=== PATIENT | female | born 1950 ===

== ENCOUNTER 2021-08-06 13:08 | Inpatient (IN) ==
[2021-08-06] MEDS ORDERED: Naloxone 0.4 MG/ML INJ IVP PRN (16:13)
[2021-08-06] MEDS ORDERED: Ondansetron 4 MG/2 ML VIAL IVP PRN (16:13)
[2021-08-06] MEDS ORDERED: Perflutren Lipid Microsphere 1.3 ML in 0.9 % Sodium Chloride 8.7 ML IVP PRN (16:15)
[2021-08-06] MEDS ORDERED: *HR* Heparin 5,000 UNIT/ML VIAL IVP ONE (16:17)
[2021-08-06] MEDS ORDERED: *HR* Heparin 5,000 UNIT/ML VIAL IVP PRN ×2 (16:17)
[2021-08-06] MEDS ORDERED: D5% in Water 1,000 ML IVC PRN (16:21)
[2021-08-06] MEDS ORDERED: *HR* Dextrose 50 % in Water (Syg) 50 ML SYRINGE IVP PRN (16:21)
[2021-08-06] MEDS ORDERED: Dextrose Gel 15 GM/37.5 ML TUBE PO PRN ×2 (16:21)
[2021-08-06] MEDS ORDERED: Heparin 25,000UNIT/250ML 1/2NS 25,000 UNIT/250 ML IV.SOLN IVC SCH (16:30)
[2021-08-06] MEDS ORDERED: Isovue-370 500 ML BOTTLE IVP ONE (16:33)
[2021-08-06 17:47] LABS: Basophils # 0.1 K/mcL (0.0-0.2); Basophils % 0.9 %; Eosinophils # 0.1 K/mcL (0.0-0.6); Eosinophils % 1.6 %; Hematocrit 37.3 % (35.3-44.9); Hematocrit 37.9 % (35.3-44.9); Hemoglobin 11.2 g/dL (11.5-15.4); Immature Granulocytes % 0.4 % (0-4); Lymphocytes # 1.7 K/mcL (0.6-4.6); Lymphocytes % 21.5 %; Mean Corpuscular Hemoglobin 25.7 pg (28.0-33.3); Mean Corpuscular Hemoglobin 26.6 pg (28.0-33.3); Mean Corpuscular Volume 88.6 fL (83.0-100.0); Mean Platelet Volume 11.2 fL (9.4-12.4); Mean Platelet Volume 11.4 fL (9.4-12.4); Monocytes # 0.8 K/mcL (0.0-1.3); Monocytes % 10.1 %; Neutrophils # 5.3 K/mcL (1.6-8.9); Platelet Count 246 K/mcL (140-400); Platelet Count 265 K/mcL (140-400); Red Blood Count 4.21 M/mcL (3.82-4.97); Red Blood Count 4.28 M/mcL (3.82-4.97); Red Cell Distribution Width 14.7 % (11.5-14.5); Segmented Neutrophils % 65.5 %; White Blood Count 8.1 K/mcL (4.3-11.1); White Blood Count 8.2 K/mcL (4.3-11.1)
[2021-08-06 17:52] LABS: Heparin anti-factor XA UFH 0.1 IU/mL (0.30-0.70)
[2021-08-06 17:53] LABS: INR 1.2; Prothrombin Time 13.5 Seconds (9.4-12.1)
[2021-08-06] MEDS: 0.9 % Sodium Chloride 1,000 ML IVC SCH (18:00)
[2021-08-06] MEDS: Insulin LISPRO 300 UNITS/3 ML VIAL SUBQ SCH ×2 (18:01→21:04)
[2021-08-06 18:07] LABS: BUN/Creatinine Ratio 22 (6-26); Blood Urea Nitrogen 19 mg/dL (8-23); Calcium 8.2 mg/dL (8.6-10.3); Carbon Dioxide 25 mEq/L (23-29); Chloride 100 mEq/L (98-107); Glucose 298 mg/dL (70-105); Magnesium 1.6 mg/dL (1.6-2.6); Osmolality,Calculated 291 (280-300); Phosphorous 2.3 mg/dL (2.7-4.5); Sodium 134 mEq/L (136-145); eGFR For African Americans > 60 (> 60); eGFR For Non-African Americans > 60 (> 60)
[2021-08-06] MEDS ORDERED: Acetaminophen 325 MG TABLET PO ONE (21:22)
[2021-08-07 00:32] LABS: Basophils # 0.1 K/mcL (0.0-0.2); Basophils % 0.6 %; Eosinophils # 0.1 K/mcL (0.0-0.6); Hematocrit 33.1 % (35.3-44.9); Immature Granulocytes % 0.3 % (0-4); Lymphocytes # 1.7 K/mcL (0.6-4.6); Lymphocytes % 19.6 %; Mean Corpuscular HGB Conc 30.2 g/dL (31.6-35.5); Mean Corpuscular Hemoglobin 26.1 pg (28.0-33.3); Mean Corpuscular Volume 86.4 fL (83.0-100.0); Mean Platelet Volume 10.6 fL (9.4-12.4); Neutrophils # 5.9 K/mcL (1.6-8.9); Platelet Count 236 K/mcL (140-400); Red Blood Count 3.83 M/mcL (3.82-4.97); Red Cell Distribution Width 14.7 % (11.5-14.5); Segmented Neutrophils % 67.5 %; White Blood Count 8.7 K/mcL (4.3-11.1)
[2021-08-07 00:50] LABS: BUN/Creatinine Ratio 21 (6-26); Blood Urea Nitrogen 18 mg/dL (8-23); Calcium 7.7 mg/dL (8.6-10.3); Carbon Dioxide 24 mEq/L (23-29); Chloride 103 mEq/L (98-107); Glucose 227 mg/dL (70-105); Magnesium 1.5 mg/dL (1.6-2.6); Osmolality,Calculated 287 (280-300); Potassium 3.8 mEq/L (3.5-5.1); Sodium 134 mEq/L (136-145); eGFR For African Americans > 60 (> 60); eGFR For Non-African Americans > 60 (> 60)
[2021-08-07 05:20] LABS: Troponin I 0.23 ng/mL (< 0.04)
[2021-08-07] MEDS: Aspirin 81 MG TAB.CHEW PO SCH (08:41)
[2021-08-07] MEDS: Insulin LISPRO 300 UNITS/3 ML VIAL SUBQ SCH ×4 (08:46→21:09)
[2021-08-07] MEDS: 0.9 % Sodium Chloride 1,000 ML IVC SCH ×2 (08:53→23:59)
[2021-08-07 09:30] LABS: Thyroid Stimulating Hormone 7.906 mcIU/mL (0.340-5.600)
[2021-08-07 10:50] LABS: Folate 8.4 ng/mL (3.0-16.0)
[2021-08-07] MEDS ORDERED: hydrOXYzine pamoate 25 MG CAPSULE PO PRN (17:12)
[2021-08-07] MEDS: traZODone 50 MG TABLET PO SCH ×2 (21:08→21:12)
[2021-08-07] MEDS ORDERED: Acetaminophen 325 MG TABLET PO ONE (21:14)
[2021-08-08 02:04] LABS: Basophils % 0.6 %; Eosinophils # 0.1 K/mcL (0.0-0.6); Eosinophils % 1.4 %; Hematocrit 31.8 % (35.3-44.9); Hemoglobin 9.6 g/dL (11.5-15.4); Immature Granulocytes % 0.2 % (0-4); Lymphocytes # 1.3 K/mcL (0.6-4.6); Lymphocytes % 19.8 %; Mean Corpuscular HGB Conc 30.2 g/dL (31.6-35.5); Mean Corpuscular Hemoglobin 26.6 pg (28.0-33.3); Mean Corpuscular Volume 88.1 fL (83.0-100.0); Mean Platelet Volume 10.9 fL (9.4-12.4); Monocytes # 0.8 K/mcL (0.0-1.3); Neutrophils # 4.4 K/mcL (1.6-8.9); Platelet Count 199 K/mcL (140-400); Red Blood Count 3.61 M/mcL (3.82-4.97); Red Cell Distribution Width 14.8 % (11.5-14.5); White Blood Count 6.6 K/mcL (4.3-11.1)
[2021-08-08 02:18] LABS: Blood Urea Nitrogen 22 mg/dL (8-23); Calcium 7.5 mg/dL (8.6-10.3); Carbon Dioxide 23 mEq/L (23-29); Chloride 106 mEq/L (98-107); Glucose 255 mg/dL (70-105); Magnesium 1.9 mg/dL (1.6-2.6); Osmolality,Calculated 292 (280-300); Phosphorous 2.6 mg/dL (2.7-4.5); Potassium 4.2 mEq/L (3.5-5.1); Sodium 135 mEq/L (136-145)
[2021-08-08 03:06] LABS: BUN/Creatinine Ratio 24 (6-26); eGFR For African Americans > 60 (> 60); eGFR For Non-African Americans 60 (> 60)
[2021-08-08] MEDS: Metoprolol XL (24 HR) Succ 25 MG TAB.ER.24H PO SCH (07:14)
[2021-08-08] MEDS: Aspirin 81 MG TAB.CHEW PO SCH (07:14)
[2021-08-08] MEDS: Insulin LISPRO 300 UNITS/3 ML VIAL SUBQ SCH ×4 (07:15→20:29)
[2021-08-08] MEDS: 0.9 % Sodium Chloride 1,000 ML IVC SCH (12:06)
[2021-08-08] MEDS: lisinopriL 5 MG TABLET PO SCH (12:57)
[2021-08-08] MEDS: traZODone 50 MG TABLET PO SCH (20:26)
[2021-08-09 01:29] LABS: Basophils % 0.6 %; Eosinophils # 0.1 K/mcL (0.0-0.6); Eosinophils % 1.3 %; Hematocrit 34.9 % (35.3-44.9); Hemoglobin 10.3 g/dL (11.5-15.4); Immature Granulocytes % 0.2 % (0-4); Lymphocytes # 1.1 K/mcL (0.6-4.6); Lymphocytes % 17.9 %; Mean Corpuscular HGB Conc 29.5 g/dL (31.6-35.5); Mean Corpuscular Hemoglobin 26.5 pg (28.0-33.3); Mean Corpuscular Volume 89.7 fL (83.0-100.0); Mean Platelet Volume 11.4 fL (9.4-12.4); Monocytes # 0.7 K/mcL (0.0-1.3); Neutrophils # 4.3 K/mcL (1.6-8.9); Platelet Count 196 K/mcL (140-400); Red Blood Count 3.89 M/mcL (3.82-4.97); Red Cell Distribution Width 15.2 % (11.5-14.5); White Blood Count 6.2 K/mcL (4.3-11.1)
[2021-08-09 01:47] LABS: Albumin 2.9 g/dL (3.5-5.7); BUN/Creatinine Ratio 26 (6-26); Blood Urea Nitrogen 27 mg/dL (8-23); Calcium 7.7 mg/dL (8.6-10.3); Carbon Dioxide 23 mEq/L (23-29); Chloride 107 mEq/L (98-107); Glucose 231 mg/dL (70-105); Magnesium 1.9 mg/dL (1.6-2.6); Osmolality,Calculated 292 (280-300); Phosphorous 3.3 mg/dL (2.7-4.5); Potassium 4.4 mEq/L (3.5-5.1); Sodium 135 mEq/L (136-145); eGFR For African Americans > 60 (> 60); eGFR For Non-African Americans 53 (> 60)
[2021-08-09] MEDS: Metoprolol XL (24 HR) Succ 25 MG TAB.ER.24H PO SCH (08:55)
[2021-08-09] MEDS: Aspirin 81 MG TAB.CHEW PO SCH (08:55)
[2021-08-09] MEDS: Insulin LISPRO 300 UNITS/3 ML VIAL SUBQ SCH ×4 (09:00→21:00)
[2021-08-09] MEDS ORDERED: lisinopriL 5 MG TABLET PO SCH ×2 (09:01→09:15)
[2021-08-09] MEDS: lisinopriL 5 MG TABLET PO SCH (10:05)
[2021-08-09] MEDS ORDERED: GuaiFENesin Liq 200 MG/10 ML UDC PO PRN (10:23)
[2021-08-09] MEDS ORDERED: 0.9 % Sodium Chloride 500 ML IVC ONE ×2 (10:26→14:45)
[2021-08-09] MEDS: Cefdinir 300 MG CAPSULE PO SCH ×2 (10:48→20:57)
[2021-08-09] MEDS: Azithromycin 250 MG TABLET PO SCH (10:48)
[2021-08-09] MEDS: Albumin 25% 25gram/100mL 25 GM/100 ML IV.SOLN IVC SCH ×4 (11:14→17:44)
[2021-08-09] MEDS: Acetaminophen 325 MG TABLET PO PRN (16:02)
[2021-08-09] MEDS ORDERED: Fluconazole 150 MG TABLET PO ONE (16:11)
[2021-08-09] MEDS: traZODone 50 MG TABLET PO SCH (20:57)
[2021-08-10 01:37] LABS: Basophils # 0.1 K/mcL (0.0-0.2); Basophils % 0.7 %; Eosinophils # 0.1 K/mcL (0.0-0.6); Eosinophils % 1.3 %; Hematocrit 32.4 % (35.3-44.9); Hemoglobin 9.4 g/dL (11.5-15.4); Immature Granulocytes % 0.6 % (0-4); Lymphocytes # 1.8 K/mcL (0.6-4.6); Lymphocytes % 25.5 %; Mean Corpuscular Hemoglobin 26.5 pg (28.0-33.3); Mean Corpuscular Volume 91.3 fL (83.0-100.0); Mean Platelet Volume 11.6 fL (9.4-12.4); Monocytes # 0.9 K/mcL (0.0-1.3); Monocytes % 13.2 %; Neutrophils # 4.1 K/mcL (1.6-8.9); Platelet Count 167 K/mcL (140-400); Red Blood Count 3.55 M/mcL (3.82-4.97); Red Cell Distribution Width 15.3 % (11.5-14.5); Segmented Neutrophils % 58.7 %; White Blood Count 7.1 K/mcL (4.3-11.1)
[2021-08-10 01:55] LABS: Calcium 8.1 mg/dL (8.6-10.3); Magnesium 1.9 mg/dL (1.6-2.6); Phosphorous 3.7 mg/dL (2.7-4.5); Potassium 4.7 mEq/L (3.5-5.1)
[2021-08-10] MEDS: Insulin LISPRO 300 UNITS/3 ML VIAL SUBQ SCH ×4 (08:21→20:21)
[2021-08-10] MEDS: Aspirin 81 MG TAB.CHEW PO SCH (08:22)
[2021-08-10] MEDS: Cefdinir 300 MG CAPSULE PO SCH (08:22)
[2021-08-10] MEDS: Azithromycin 250 MG TABLET PO SCH (08:22)
[2021-08-10] MEDS: Metoprolol XL (24 HR) Succ 25 MG TAB.ER.24H PO SCH (08:23)
[2021-08-10] MEDS: Albumin 25% 25gram/100mL 25 GM/100 ML IV.SOLN IVC SCH ×2 (10:14→10:15)
[2021-08-10] MEDS: Acetaminophen 325 MG TABLET PO PRN ×2 (10:52→20:24)
[2021-08-10 11:20] LABS: Adenovirus Not Detected (Not Detect); Bordetella Pertussis Not Detected (Not Detect); Chlamydophila pneumoniae Not Detected (Not Detect); Coronavirus 229E Not Detected (Not Detect); Coronavirus HKU1 Not Detected (Not Detect); Coronavirus NL63 Not Detected (Not Detect); Coronavirus OC43 Not Detected (Not Detect); Human Metapneumovirus Not Detected (Not Detect); Human Rhinovirus/Enterovirus Not Detected (Not Detect); Influenza A Subtype 2009 H1 Not Detected (Not Detect); Influenza B Not Detected (Not Detect); Mycoplasma pneumoniae Not Detected (Not Detect); Parainfluenza Virus 1 Not Detected (Not Detect); Parainfluenza Virus 2 Not Detected (Not Detect); Parainfluenza Virus 3 Not Detected (Not Detect); Parainfluenza Virus 4 Not Detected (Not Detect); Respiratory Syncytial Virus Not Detected (Not Detect); SARS-CoV-2 Not Detected (Not Detect)
[2021-08-10] MEDS: cefTRIAXone 1,000 MG in Water for inj. (sterile) 10 ML IVP SCH (12:43)
[2021-08-10 16:00] LABS: Total Protein,Pleural Fluid 2.2 g/dL
[2021-08-10 16:42] LABS: RBC,Pleural Fluid < 2000 RBC/mcL
[2021-08-10 16:53] LABS: Appearance of Pleural Fl Clear (Clear)
[2021-08-10 17:00] LABS: Basophils,Pleural Fluid 0 %; Eosinophils,Pleural Fluid 0 %; Monocytes,Pleural Fluid 0 %
[2021-08-10] MEDS: traZODone 50 MG TABLET PO SCH (20:20)
[2021-08-11 01:01] LABS: Basophils # 0.1 K/mcL (0.0-0.2); Basophils % 0.8 %; Eosinophils # 0.1 K/mcL (0.0-0.6); Eosinophils % 0.9 %; Hemoglobin 9.7 g/dL (11.5-15.4); Immature Granulocytes % 0.4 % (0-4); Lymphocytes # 1.3 K/mcL (0.6-4.6); Lymphocytes % 15.1 %; Mean Corpuscular HGB Conc 29.4 g/dL (31.6-35.5); Mean Corpuscular Hemoglobin 26.4 pg (28.0-33.3); Mean Corpuscular Volume 89.9 fL (83.0-100.0); Mean Platelet Volume 11.5 fL (9.4-12.4); Monocytes # 0.8 K/mcL (0.0-1.3); Monocytes % 9.1 %; Neutrophils # 6.3 K/mcL (1.6-8.9); Platelet Count 179 K/mcL (140-400); Red Blood Count 3.67 M/mcL (3.82-4.97); Red Cell Distribution Width 15.5 % (11.5-14.5); Segmented Neutrophils % 73.7 %; White Blood Count 8.5 K/mcL (4.3-11.1)
[2021-08-11 01:24] LABS: Calcium 8.2 mg/dL (8.6-10.3); Magnesium 1.8 mg/dL (1.6-2.6); Phosphorous 3.8 mg/dL (2.7-4.5); Potassium 4.9 mEq/L (3.5-5.1)
[2021-08-11] MEDS: Metoprolol XL (24 HR) Succ 25 MG TAB.ER.24H PO SCH (08:10)
[2021-08-11] MEDS: Aspirin 81 MG TAB.CHEW PO SCH (08:11)
[2021-08-11] MEDS: cefTRIAXone 1,000 MG in Water for inj. (sterile) 10 ML IVP SCH (08:12)
[2021-08-11] MEDS: Insulin LISPRO 300 UNITS/3 ML VIAL SUBQ SCH ×4 (08:13→21:01)
[2021-08-11] MEDS: Acetaminophen 325 MG TABLET PO PRN ×2 (08:19→21:02)
[2021-08-11] MEDS ORDERED: Azithromycin 500 MG in 0.9 % Sodium Chloride 250 ML IVPB SCH (09:00)
[2021-08-11] MEDS ORDERED: traZODone 50 MG TABLET PO SCH (21:00)
[2021-08-12 01:50] LABS: BUN/Creatinine Ratio 29 (6-26); Blood Urea Nitrogen 29 mg/dL (8-23); Calcium 8.1 mg/dL (8.6-10.3); Carbon Dioxide 24 mEq/L (23-29); Chloride 107 mEq/L (98-107); Glucose 219 mg/dL (70-105); Magnesium 1.8 mg/dL (1.6-2.6); Osmolality,Calculated 295 (280-300); Phosphorous 3.3 mg/dL (2.7-4.5); Potassium 4.2 mEq/L (3.5-5.1); Sodium 136 mEq/L (136-145); eGFR For African Americans > 60 (> 60); eGFR For Non-African Americans 54 (> 60)
[2021-08-12] MEDS: Insulin LISPRO 300 UNITS/3 ML VIAL SUBQ SCH ×3 (08:26→16:40)
[2021-08-12] MEDS: Metoprolol XL (24 HR) Succ 25 MG TAB.ER.24H PO SCH (08:31)
[2021-08-12] MEDS: Acetaminophen 325 MG TABLET PO PRN ×2 (08:31→14:36)
[2021-08-12] MEDS: Aspirin 81 MG TAB.CHEW PO SCH (08:31)
[2021-08-12] MEDS: cefTRIAXone 1,000 MG in Water for inj. (sterile) 10 ML IVP SCH (08:32)
[2021-08-12 11:43] LABS: Adenovirus Not Detected (Not Detect); Bordetella Pertussis Not Detected (Not Detect); Chlamydophila pneumoniae Not Detected (Not Detect); Coronavirus 229E Not Detected (Not Detect); Coronavirus HKU1 Not Detected (Not Detect); Coronavirus NL63 Not Detected (Not Detect); Coronavirus OC43 Not Detected (Not Detect); Human Metapneumovirus Not Detected (Not Detect); Human Rhinovirus/Enterovirus Not Detected (Not Detect); Influenza A Subtype 2009 H1 Not Detected (Not Detect); Influenza B Not Detected (Not Detect); Mycoplasma pneumoniae Not Detected (Not Detect); Parainfluenza Virus 1 Not Detected (Not Detect); Parainfluenza Virus 2 Not Detected (Not Detect); Parainfluenza Virus 3 Not Detected (Not Detect); Parainfluenza Virus 4 Not Detected (Not Detect); Respiratory Syncytial Virus Not Detected (Not Detect); SARS-CoV-2 Not Detected (Not Detect)
[2021-08-12 16:03] VITALS: BP 136/94; PULSE 76; TEMP 97.3; O2SAT 92
== END 2021-08-12 18:50 | disposition other institution (70) | DRG 280 ==
LOC: 2ANU → SUATTDRO 08-07 13:29
PROVIDERS: ADMIT Family Medicine; ATTEND Internal Medicine

== ENCOUNTER 2022-03-17 23:54 | Observation (INO) ==
[2022-03-18] MEDS ORDERED: Naloxone 0.4 MG/ML INJ IVP PRN (08:46)
[2022-03-18] MEDS ORDERED: Ondansetron ODT 4 MG TAB.RAPDIS SL PRN (08:46)
[2022-03-18] MEDS ORDERED: Perflutren Lipid Microsphere 1.3 ML in 0.9 % Sodium Chloride 8.7 ML IVP PRN (08:50)
[2022-03-18 09:42] LABS: Basophils % 0.7 %; Eosinophils # 0.2 K/mcL (0.0-0.6); Eosinophils % 4.1 %; Hematocrit 33.8 % (35.3-44.9); Hemoglobin 10.9 g/dL (11.5-15.4); Immature Granulocytes % 0.4 % (0-4); Lymphocytes # 1.4 K/mcL (0.6-4.6); Lymphocytes % 24.2 %; Mean Corpuscular HGB Conc 32.2 g/dL (31.6-35.5); Mean Corpuscular Hemoglobin 28.3 pg (28.0-33.3); Mean Corpuscular Volume 87.8 fL (83.0-100.0); Mean Platelet Volume 9.2 fL (9.4-12.4); Monocytes # 0.8 K/mcL (0.0-1.3); Monocytes % 13.9 %; Neutrophils # 3.2 K/mcL (1.6-8.9); Platelet Count 223 K/mcL (140-400); Red Blood Count 3.85 M/mcL (3.82-4.97); Red Cell Distribution Width 16.7 % (11.5-14.5); Segmented Neutrophils % 56.7 %; White Blood Count 5.6 K/mcL (4.3-11.1)
[2022-03-18 09:44] LABS: Chol/HDL Ratio 2.9 (0-4.9)
[2022-03-18 09:46] LABS: Blood Urea Nitrogen 37 mg/dL (8-23); Carbon Dioxide 26 mEq/L (23-29); Chloride 105 mEq/L (98-107); Magnesium 2.4 mg/dL (1.6-2.6); Potassium 4.7 mEq/L (3.5-5.1); Sodium 134 mEq/L (136-145)
[2022-03-18 09:47] LABS: Alanine Aminotransferase 11 Units/L (7-52); Albumin 3.6 g/dL (3.5-5.7); Albumin/Globulin Ratio 1.2 (1.1-2.2); Alkaline Phosphatase 66 Units/L (34-104); Aspartate Amino Transferase 18 Units/L (13-39); BUN/Creatinine Ratio 39 (6-26); Bilirubin,Total 0.4 mg/dL (0.3-1.0); Calcium 9.1 mg/dL (8.6-10.3); Globulin 3.1 g/dL (2.4-3.5); Glucose 203 mg/dL (70-105); Osmolality,Calculated 292 (280-300); Total Protein 6.7 g/dL (6.4-8.9); eGFR For African Americans > 60 (> 60); eGFR For Non-African Americans 57 (> 60)
[2022-03-18 10:00] LABS: Thyroid Stimulating Hormone 0.9 mcIU/mL (0.340-5.600)
[2022-03-18 10:01] LABS: Estimated Average Glucose 183 mg/dl
[2022-03-18] MEDS ORDERED: *HR* LORazepam 1 MG TABLET PO ONE (11:37)
[2022-03-18] MEDS ORDERED: Ondansetron ODT 4 MG TAB.RAPDIS PO PRN (17:31)
[2022-03-18] MEDS ORDERED: Nitroglycerin 0.4 MG TAB.SUBL SL PRN (17:31)
[2022-03-18] MEDS ORDERED: MENTHOL TP PRN (17:31)
[2022-03-18] MEDS ORDERED: D5% in Water 1,000 ML IVC PRN (17:32)
[2022-03-18] MEDS ORDERED: Dextrose Gel 15 GM/37.5 ML TUBE PO PRN ×2 (17:32)
[2022-03-18] MEDS ORDERED: *HR* Dextrose 50 % in Water (Syg) 50 ML SYRINGE IVP PRN (17:32)
[2022-03-18] MEDS: *HR* Heparin 5,000 UNIT/ML VIAL SQ SCH (17:57)
[2022-03-18] MEDS: Insulin LISPRO 300 UNITS/3 ML VIAL SUBQ SCH ×2 (17:58→21:19)
[2022-03-18] MEDS: Magnesium Oxide 400 MG TABLET PO SCH (21:18)
[2022-03-18] MEDS: Acetaminophen 325 MG TABLET PO PRN (21:18)
[2022-03-19 02:21] LABS: Basophils % 0.6 %; Eosinophils # 0.2 K/mcL (0.0-0.6); Eosinophils % 3.3 %; Hematocrit 31.7 % (35.3-44.9); Hemoglobin 10.4 g/dL (11.5-15.4); Immature Granulocytes % 0.2 % (0-4); Lymphocytes # 1.9 K/mcL (0.6-4.6); Lymphocytes % 34.3 %; Mean Corpuscular HGB Conc 32.8 g/dL (31.6-35.5); Mean Corpuscular Hemoglobin 28.6 pg (28.0-33.3); Mean Corpuscular Volume 87.1 fL (83.0-100.0); Mean Platelet Volume 9.4 fL (9.4-12.4); Monocytes # 0.8 K/mcL (0.0-1.3); Monocytes % 14.9 %; Neutrophils # 2.5 K/mcL (1.6-8.9); Platelet Count 217 K/mcL (140-400); Red Blood Count 3.64 M/mcL (3.82-4.97); Red Cell Distribution Width 16.4 % (11.5-14.5); Segmented Neutrophils % 46.7 %; White Blood Count 5.4 K/mcL (4.3-11.1)
[2022-03-19 02:40] LABS: BUN/Creatinine Ratio 35 (6-26); Blood Urea Nitrogen 37 mg/dL (8-23); Calcium 9.3 mg/dL (8.6-10.3); Carbon Dioxide 28 mEq/L (23-29); Chloride 103 mEq/L (98-107); Glucose 221 mg/dL (70-105); Magnesium 2.2 mg/dL (1.6-2.6); Osmolality,Calculated 297 (280-300); Potassium 4.5 mEq/L (3.5-5.1); Sodium 136 mEq/L (136-145); eGFR For African Americans > 60 (> 60); eGFR For Non-African Americans 51 (> 60)
[2022-03-19] MEDS: *HR* Heparin 5,000 UNIT/ML VIAL SQ SCH ×2 (05:12→18:37)
[2022-03-19] MEDS: Acetaminophen 325 MG TABLET PO PRN ×3 (08:57→21:31)
[2022-03-19] MEDS: methocarbamoL 500 MG TABLET PO SCH (08:58)
[2022-03-19] MEDS: Metoprolol XL (24 HR) Succ 25 MG TAB.ER.24H PO SCH (08:58)
[2022-03-19] MEDS: Magnesium Oxide 400 MG TABLET PO SCH ×2 (08:58→20:29)
[2022-03-19] MEDS: Loratadine 10 MG TABLET PO SCH (08:59)
[2022-03-19] MEDS: Insulin LISPRO 300 UNITS/3 ML VIAL SUBQ SCH ×4 (08:59→21:37)
[2022-03-19] MEDS: cefTRIAXone 1,000 MG in 0.9 % Sodium Chloride 10 ML IVP SCH (09:09)
[2022-03-20 02:56] LABS: Basophils % 0.7 %; Eosinophils # 0.3 K/mcL (0.0-0.6); Eosinophils % 4.4 %; Hematocrit 31.6 % (35.3-44.9); Hemoglobin 10.3 g/dL (11.5-15.4); Immature Granulocytes % 0.3 % (0-4); Lymphocytes # 1.7 K/mcL (0.6-4.6); Lymphocytes % 28.1 %; Mean Corpuscular HGB Conc 32.6 g/dL (31.6-35.5); Mean Corpuscular Hemoglobin 28.9 pg (28.0-33.3); Mean Corpuscular Volume 88.8 fL (83.0-100.0); Mean Platelet Volume 9.8 fL (9.4-12.4); Monocytes # 0.9 K/mcL (0.0-1.3); Monocytes % 15.1 %; Neutrophils # 3.1 K/mcL (1.6-8.9); Platelet Count 230 K/mcL (140-400); Red Blood Count 3.56 M/mcL (3.82-4.97); Red Cell Distribution Width 16.1 % (11.5-14.5); Segmented Neutrophils % 51.4 %; White Blood Count 6.1 K/mcL (4.3-11.1)
[2022-03-20 03:10] LABS: BUN/Creatinine Ratio 48 (6-26); Blood Urea Nitrogen 54 mg/dL (8-23); Calcium 9.3 mg/dL (8.6-10.3); Carbon Dioxide 25 mEq/L (23-29); Chloride 104 mEq/L (98-107); Glucose 295 mg/dL (70-105); Magnesium 1.9 mg/dL (1.6-2.6); Osmolality,Calculated 306 (280-300); Phosphorous 3.9 mg/dL (2.7-4.5); Potassium 5.1 mEq/L (3.5-5.1); Sodium 135 mEq/L (136-145); eGFR For African Americans 58 (> 60); eGFR For Non-African Americans 48 (> 60)
[2022-03-20] MEDS ORDERED: GI Cocktail 40 ML EACH PO ONE (03:21)
[2022-03-20] MEDS: Acetaminophen 325 MG TABLET PO PRN ×3 (03:49→17:49)
[2022-03-20 03:55] LABS: Troponin I < 0.03 ng/mL (< 0.04)
[2022-03-20] MEDS: *HR* Heparin 5,000 UNIT/ML VIAL SQ SCH ×2 (06:32→17:47)
[2022-03-20] MEDS: Insulin LISPRO 300 UNITS/3 ML VIAL SUBQ SCH ×3 (07:38→17:47)
[2022-03-20] MEDS: cefTRIAXone 1,000 MG in 0.9 % Sodium Chloride 10 ML IVP SCH (08:24)
[2022-03-20] MEDS: Magnesium Oxide 400 MG TABLET PO SCH (08:25)
[2022-03-20] MEDS: methocarbamoL 500 MG TABLET PO SCH (08:25)
[2022-03-20] MEDS: Loratadine 10 MG TABLET PO SCH (08:25)
[2022-03-20] MEDS: Metoprolol XL (24 HR) Succ 25 MG TAB.ER.24H PO SCH (08:25)
[2022-03-20 14:55] VITALS: O2SAT 99
[2022-03-20 16:23] VITALS: BP 159/65; PULSE 95; TEMP 98.7
[2022-03-20 16:41] LABS: Influenza A PCR Negative (Negative); Influenza B PCR Negative (Negative); Resp. Syncytial Virus PCR Negative (Negative)
[2022-03-20 16:43] LABS: SARS-CoV-2 by PCR (In House) Negative (Negative)
== END 2022-03-20 20:10 ==
LOC: 2NENU → SUATTDRO 03-18 07:18
PROVIDERS: ADMIT Internal Medicine; ATTEND Student in an Organized Health Care Education/Training Program